=== PATIENT | male | born 1950 | race Caucasian/White ===

== ENCOUNTER → 2018-06-03 | Outpatient (CLI) | payer OTHER ==
--- NOTE | 2018-06-03 12:04 | MR ---
MR left hip HISTORY: Pain in left hip Multiplanar multisequence imaging through the pelvis with small [id number] images performed throug h the left hip Correlation to plain film dated 10/21/2015 Degenerative disc changes are noted in the lumbar spine, there are facet arthropathy changes. No evid ent labral tear within the limitations of the exam. Bone marrow signal is maintained. There is a smal l right hip joint effusion as compared to left. No evident free fluid within the pelvis. No evident t rochanteric bursitis or significant osteoarthritic change. No fracture or dislocation. There is a sma ll amount of fluid signal present at the insertion of the gluteus medius tendon. Suspect prostate is enlarged. Thickening of the urinary bladder wall could be due to chronic bladder outlet obstruction. IMPRESSION: There may be strain or partial tear to the gluteus medius tendon insertion. Degenerative disc disease in the lumbar spine and additional findings above.
--- NOTE | 2018-06-04 10:00 | MR ---
MR left thigh without contrast HISTORY: Pain in left leg Multiplanar multisequence imaging obtained through the left femur and thigh. No comparisons There is fatty infiltration seen within the vastus lateralis, biceps femoris and semitendinosus muscu lature of the left thigh. Bone marrow signal is essentially normal. There is no evident mass. There i s some subcutaneous edema present. The vasculature shows normal signal. IMPRESSION: Fatty infiltration of the musculature can be seen in chronic denervation, chronic disuse or as a late finding after severe muscle injury, corticosteroid use
== END | disposition home or self-care (01) ==
LOC: RADMRIMAIN 09:50
PROVIDERS: ATTEND Family Medicine
DX: M25.452 Effusion, left hip (principal); M79.605 Pain in left leg